=== PATIENT | female | born 1995 | race Caucasian/White ===

== ENCOUNTER 2016-09-27 16:49 | Emergency (ER) | payer SELFPAY ==
[2016-09-27 16:55] VITALS: BP 122/78; PULSE 90; RESP 16; TEMP 98.3; O2SAT 98
[2016-09-27] MEDS ORDERED: Sodium Chloride 0.9% 1,000 ML IV ONE (17:26)
[2016-09-27] MEDS ORDERED: Sodium Chloride 0.9% 1,000 ML ONE (17:31)
--- NOTE | 2016-09-27 17:38 | C.PDOC ---
History Of Present Illness Patient is a 21 y/o F presenting for evaluation of lightheadedness. Patient reports that she was walking outside in the heat today when she became lightheaded. She also reports that 2 days ago she felt nauseous. She reports that that has resolved and now denies chest pain, shortness of breath, vomiting , fever, cough, uri, dysuria, or change in bladder or bowel habits. She reports that her LMP was 6/27 and want to see if she is . Time Seen by Provider: 09/27/16 17:14 Chief Complaint (Nursing): GI Problem Past Medical History Vital Signs: Last Vital Signs Temp 98.3 F 09/27/16 16:52 Pulse 90 09/27/16 16:52 Resp 16 09/27/16 16:52 BP 122/78 09/27/16 16:52 Pulse Ox 98 09/27/16 18:15 - Medical History PMH: No Chronic Diseases Family History: Denies: ID, CAD - Social History Hx Alcohol Use: No Hx Substance Use: No - Immunization History Hx Tetanus Toxoid Vaccination: No Hx Influenza Vaccination: No Hx Pneumococcal Vaccination: No Review Of Systems Constitutional: Negative for: Fever, Chills Eyes: Negative for: Vision Change Cardiovascular: Positive for: Light Headedness. Negative for: Chest Pain, Palpitations, Orthopnea Respiratory: Negative for: Cough, Shortness of Breath Gastrointestinal: Positive for: Nausea (on tuesday). Negative for: Vomiting, Abdominal Pain, Diarrhea, Constipation Genitourinary: Negative for: Dysuria, Frequency, Vaginal Discharge, Vaginal Bleeding Neurological: Negative for: Numbness, Altered Mental Status, Headache Physical Exam - Physical Exam Appears: Well, Non-toxic, No Acute Distress Skin: Normal Color, Warm, Dry Head: Atraumatic, Normacephalic Eye(s): bilateral: Normal Inspection, PERRL, EOMI Neck: Normal, Supple Chest: Symmetrical Cardiovascular: Rhythm Regular, No Edema Respiratory: Normal Breath Sounds, No Accessory Muscle Use, No Rales, No Rhonchi , No Wheezing Gastrointestinal/Abdominal: No Soft, No Tenderness, No Mass, No Distention Back: Normal Inspection, No CVA Tenderness Extremity: Normal ROM Neurological/Psych: Oriented x3, Normal Speech, Normal Cranial Nerves, Normal Motor, Normal Sensation Gait: Steady ED Course And Treatment - Laboratory Results Result Diagrams: 09/27/16 17:40 09/27/16 17:40 O2 Sat by Pulse Oximetry: 98 Medical Decision Making Medical Decision Making: Patient presenting with dizziness. r/o electrolyte abnormality, anemia, and . Negative Perc. 5:38PM test negative 5:51PM EKG shows NSR at 92bpm with normal intervals and no ST changes. 5:56PM Labs show hypokalemia and replacement ordered. Otherwise labs grossly normal. Patient feels better after IVF Disposition - Disposition Disposition: HOME/ ROUTINE Disposition Time: 17:57 Condition: GOOD Additional Instructions: Follow up with PMD within 2 days. Return to ED if condition worsens. Follow up with PMD for asymptomatic elevated lipase Instructions: Hypokalemia (ED), Lightheadedness (ED) - Clinical Impression Clinical Impression: Lightheaded
[2016-09-27 17:45] LABS: BASO % 0.6 % (0.0-2.0); EOS % 0.5 % (0.0-4.0); HEMOGLOBIN 12.2 g/dL (11.0-16.0); LYMPH # 1.8 K/uL (1.0-4.3); LYMPH % 26.1 % (20.0-40.0); MEAN CELL VOLUME 89.6 fL (81.0-99.0); MEAN CORPUSCULAR HEMOGLOBIN 29.9 pg (27.0-31.0); MEAN CORPUSCULAR HGB CONC 33.4 g/dL (33.0-37.0); MEAN PLATELET VOLUME 9.9 fL (7.2-11.7); MONO # 0.4 K/uL (0.0-0.8); MONO % 6.4 % (0.0-10.0); NEUT # 4.7 K/uL (1.8-7.0); NEUT % 66.4 % (50.0-75.0); NRBC % 0.1 % (0.0-2.0); RBC 4.09 Mil/uL (3.80-5.20); RED CELL DISTRIBUTION WIDTH 13.1 % (11.5-14.5)
[2016-09-27 17:51] LABS: SQUAMOUS EPITHIAL 3 /hpf (0-5); URINE BACTERIA RARE (<OCC); URINE BILIRUBIN NEGATIVE (NEGATIVE); URINE BLOOD NEGATIVE (NEGATIVE); URINE CLARITY Hazy (Clear); URINE COLOR Yellow (YELLOW); URINE GLUCOSE (UA) NORMAL (Normal); URINE NITRATE NEGATIVE (NEGATIVE); URINE PROTEIN NEGATIVE (NEGATIVE); URINE UROBILINOGEN NORMAL mg/dL (0.2-1.0)
[2016-09-27 17:52] LABS: ALBUMIN 4.3 g/dL (3.5-5.0)
[2016-09-27 17:55] LABS: ALB/GLOB RATIO 1.3 (1.0-2.1); ALT/SGPT 22 U/L (9-52); AST/SGOT 20 U/L (14-36); BLOOD UREA NITROGEN 9 mg/dL (7-17); GFR AFRICAN-AMERICAN > 60; GFR NON-AFRICAN AMERICAN > 60
[2016-09-27] MEDS ORDERED: Potassium Chloride 20 mEq ER Tab PO STA (17:55)
[2016-09-27 17:56] LABS: CALCIUM 8.9 mg/dl (8.6-10.4); LIPASE 310 U/L (23-300); MAGNESIUM 1.7 mg/dL (1.6-2.3)
[2016-09-27] MEDS ORDERED: Potassium Chloride 20 mEq ER Tab PO ONE (18:03)
[2016-09-27 18:09] LABS: URINE LEUKOCYTE ESTERASE NEGATIVE Leu/uL (Negative)
--- NOTE | 2016-09-28 13:04 | CARD ---
APPROVED REPORT EKG Measurement Heart [id number] <Conclusion> Normal sinus rhythm Normal ECG
== END 2016-09-27 18:19 | disposition home or self-care (01) ==
LOC: C.ER 16:49
DX: R42 Dizziness and giddiness (principal); E87.6 Hypokalemia
CPT/HCPCS: 80053; 81001; 83690; 83735; 84100; 85025; 93005; 96361; 96374; 96375; 99284; J1885; J2405; J7040